=== PATIENT | male | born 1945 | race Hispanic/Latino ===

== ENCOUNTER 2017-06-06 11:22 | Day surgery (SDC) | payer OTHER, MEDICARE ==
[~2017-06-06] VITALS: Ht 165.1 cm; Wt 77.1 kg
[~2017-06-06 11:22] MED LIST: ASPI-555 PO; FENO145T37 PO; LISI10TA7 PO; SODIUM CHLORIDE 0.9% 1000ML 1,000 ML IV ONE
[2017-06-06 12:37] VITALS: BP 153/88
[2017-06-06] MEDS ORDERED: MEPERIDINE-PF 50 MG/ML SYG ONE ×2 (13:48→14:01)
[2017-06-06] MEDS ORDERED: MIDAZOLAM HCL 1 MG/ML 2ML VIAL ONE ×2 (13:48→14:00)
== END 2017-06-06 15:23 | disposition home or self-care (01) ==
LOC: DAH 11:22 → ENDO 11:22
PROVIDERS: ATTEND Internal Medicine Gastroenterology
DX: Z12.11 Encounter for screening for malignant neoplasm of colon (principal); I10 Essential (primary) hypertension; E78.5 Hyperlipidemia, unspecified; Z79.82 Long term (current) use of aspirin
CPT/HCPCS: 99156; 99157; G0121; A4606; J2175; J2250; J7030